=== PATIENT | female | born 1960 | race Caucasian/White ===

== ENCOUNTER 2019-08-02 11:30 | Emergency (ER) | payer MEDICAID ==
[~2019-08-02] VITALS: Ht 154.9 cm; Wt 105.0 kg
[~2019-08-02 11:30] MED LIST: ALBU18HF2 INH; BUSP5TAB3 PO; FLO110IN IH; LISI40TA4 PO; METF500T PO; PRAV40TA3 PO; TAM75C PO
[2019-08-02 11:35] VITALS: BP 164/85
[2019-08-02] MEDS ORDERED: METF-438 PO (12:22)
[2019-08-02] MEDS ORDERED: PIOG30TA10 PO (12:22)
== END 2019-08-02 12:31 | disposition home or self-care (01) ==
LOC: ER 11:30
DX: R05 Cough (principal); R09.81 Nasal congestion; I10 Essential (primary) hypertension; J45.909 Unspecified asthma, uncomplicated; E11.9 Type 2 diabetes mellitus without complications; Z98.890 Other specified postprocedural states; Z60.2 Problems related to living alone; Z79.899 Other long term (current) drug therapy
CPT/HCPCS: 99284

== ENCOUNTER 2019-10-12 10:27 | Emergency (ER) | payer MEDICAID ==
[~2019-10-12] VITALS: Ht 154.9 cm; Wt 105.0 kg
[~2019-10-12 10:27] MED LIST changes: +METF-438 PO; +PIOG30TA10 PO
--- NOTE | 2019-10-12 11:46 | NUR ---
Pt observed ambualting to restroom unassisted, with steady gait. Pt in no obvious distress or pain.
[2019-10-12] MEDS ORDERED: ketorolac trometh. 30mg/ml inj. IM ONE (12:50)
[2019-10-12] MEDS ORDERED: morphine 4 MG/ML inj SYRINge IM ONE (12:50)
[2019-10-12 13:08] VITALS: BP 157/93
== END 2019-10-12 13:05 | disposition home or self-care (01) ==
LOC: ER 10:27
DX: G89.29 Other chronic pain (principal); M54.9 Dorsalgia, unspecified; I10 Essential (primary) hypertension; J44.9 Chronic obstructive pulmonary disease, unspecified; E11.9 Type 2 diabetes mellitus without complications; Z87.01 Personal history of pneumonia (recurrent); Z98.890 Other specified postprocedural states; Z88.8 Allergy status to other drugs, medicaments and biological substances; Z79.899 Other long term (current) drug therapy; W18.30XA Fall on same level, unspecified, initial encounter; Y93.89 Activity, other specified; Y92.028 Other place in mobile home as the place of occurrence of the external cause; Y99.9 Unspecified external cause status
CPT/HCPCS: 96372; 99284; J1885; J2270

== ENCOUNTER 2020-06-20 11:41 | Emergency (ER) | payer MEDICAID ==
[~2020-06-20] VITALS: Ht 154.9 cm; Wt 124.0 kg
[2020-06-20 12:56] VITALS: BP 155/85
== END 2020-06-20 13:42 | disposition home or self-care (01) ==
LOC: ER 11:41
DX: S63.92XA Sprain of unspecified part of left wrist and hand, initial encounter (principal); S60.222A Contusion of left hand, initial encounter; G62.9 Polyneuropathy, unspecified; I10 Essential (primary) hypertension; J44.9 Chronic obstructive pulmonary disease, unspecified; G89.29 Other chronic pain; M54.9 Dorsalgia, unspecified; E11.9 Type 2 diabetes mellitus without complications; Z79.899 Other long term (current) drug therapy; Z88.8 Allergy status to other drugs, medicaments and biological substances; W10.9XXA Fall (on) (from) unspecified stairs and steps, initial encounter; Y93.01 Activity, walking, marching and hiking; Y92.89 Other specified places as the place of occurrence of the external cause; Y99.8 Other external cause status
CPT/HCPCS: 73120; 99283; 99284

== ENCOUNTER 2022-02-10 12:09 | Emergency (ER) | payer MEDICAID ==
[~2022-02-10] VITALS: Ht 152.4 cm; Wt 117.0 kg
[~2022-02-10 12:09] MED LIST changes: +LISI40TA13 PO; -LISI40TA4 PO
[2022-02-10 12:57] LABS: BASOPHILS # (AUTO) 0.1 X10'3 (0-0.2); EOSINOPHILS # (AUTO) 0.2 X10'3 (0-0.9); HEMATOCRIT 36.9 % (35.0-45.0); LYMPHOCYTES # (AUTO) 3.8 X10'3 (1.1-4.8); LYMPHOCYTES % (AUTO) 33.6 % (21-51); MEAN CORPUSCULAR HEMOGLOBIN 28.6 PG (27.0-31.0); MEAN CORPUSCULAR HGB CONC 32.5 g/dL (33.0-36.5); MEAN PLATELET VOLUME 8.9 FL (7.4-10.4); MONOCYTES # (AUTO) 0.9 X10'3 (0-0.9); MONOCYTES % (AUTO) 8.3 % (2-12); NEUTROPHILS # (AUTO) 6.3 X10'3 (1.8-7.7); NEUTROPHILS % (AUTO) 55.1 % (42-75); PLATELET COUNT 319 X10'3 (140-440); RED BLOOD COUNT 4.19 X10'6 (4.20-5.60); RED CELL DISTRIBUTION WIDTH 13.7 % (11.5-14.5); WHITE BLOOD COUNT 11.4 X10'3 (4.5-11.0)
[2022-02-10 13:07] LABS: ALANINE AMINOTRANSFERASE 24 U/L (12-78); ALBUMIN/GLOBULIN RATIO 0.9 (1.1-1.5); ALKALINE PHOSPHATASE 87 IU/L (46-116); ANION GAP 11 (8-16); ASPARTATE AMINO TRANSFERASE 24 U/L (10-37); BILIRUBIN,TOTAL 0.3 MG/DL (0.1-1.0); BLOOD UREA NITROGEN 22 MG/DL (7-18); BUN/CREATININE RATIO 18.2 (6.6-38.0); CALCIUM 9.8 MG/DL (8.5-10.1); CHLORIDE 105 MMOL/L (99-107); CREATININE 1.21 MG/DL (0.40-0.90); GLUCOSE 149 MG/DL (70-104); POTASSIUM 4.3 MMOL/L (3.5-5.1); SODIUM 141 MMOL/L (135-145); TOTAL CARBON DIOXIDE 25.3 MMOL/L (24-32); TOTAL PROTEIN 8.3 G/DL (6.4-8.2); eGFR 45 ML/MIN
[2022-02-10 13:08] LABS: CLARITY,URINE CLEAR (Clear); COLOR,URINE YELLOW (Yellow); GLUCOSE, URINE NEGATIVE (Neg); KETONES,URINE NEGATIVE (Neg); LEUKOCYTE ESTERASE ,URINE NEGATIVE (Neg); NITRITES, URINE NEGATIVE (Neg); OCCULT BLOOD,URINE NEGATIVE (Neg); PH,URINE 5.5 (4.8-8.0); PROTEIN,URINE NEGATIVE (Neg); UROBILINOGEN,URINE 0.2 E.U/dL (0.2-1.0)
[2022-02-10 13:13] LABS: UA COLLECTION TYPE NON-SPECIFIED
[2022-02-10 16:47] VITALS: BP 129/80
== END 2022-02-10 16:45 | disposition home or self-care (01) ==
LOC: ER 12:10
DX: R10.31 Right lower quadrant pain (principal); R19.7 Diarrhea, unspecified; D25.9 Leiomyoma of uterus, unspecified; R11.0 Nausea; I10 Essential (primary) hypertension; J44.9 Chronic obstructive pulmonary disease, unspecified; E11.9 Type 2 diabetes mellitus without complications; G89.29 Other chronic pain; M54.9 Dorsalgia, unspecified
CPT/HCPCS: 36415; 74176; 80053; 81003; 85025; 99284

== ENCOUNTER 2022-07-27 08:59 | Day surgery (SDC) | payer MEDICARE, MEDICAID ==
[2022-07-26 12:55] LABS: BASOPHILS # (AUTO) 0.1 X10'3 (0-0.2); EOSINOPHILS # (AUTO) 0.2 X10'3 (0-0.9); EOSINOPHILS % (AUTO) 2.7 % (0-6); HEMATOCRIT 36.5 % (35.0-45.0); LYMPHOCYTES # (AUTO) 2.8 X10'3 (1.1-4.8); LYMPHOCYTES % (AUTO) 34.7 % (21-51); MEAN CORPUSCULAR HGB CONC 32.9 g/dL (33.0-36.5); MEAN CORPUSCULAR VOLUME 88.1 FL (78-98); MEAN PLATELET VOLUME 8.7 FL (7.4-10.4); MONOCYTES # (AUTO) 0.6 X10'3 (0-0.9); MONOCYTES % (AUTO) 7.2 % (2-12); NEUTROPHILS # (AUTO) 4.4 X10'3 (1.8-7.7); NEUTROPHILS % (AUTO) 54.4 % (42-75); PLATELET COUNT 293 X10'3 (140-440); RED BLOOD COUNT 4.14 X10'6 (4.20-5.60); RED CELL DISTRIBUTION WIDTH 13.9 % (11.5-14.5); WHITE BLOOD COUNT 8.1 X10'3 (4.5-11.0)
[2022-07-26 13:17] LABS: ALBUMIN 3.8 G/DL (3.4-5.0); ANION GAP 12 (8-16); BLOOD UREA NITROGEN 16 MG/DL (7-18); BUN/CREATININE RATIO 12.1 (6.6-38.0); CALCIUM 9.6 MG/DL (8.5-10.1); CHLORIDE 103 MMOL/L (99-107); CREATININE 1.32 MG/DL (0.40-0.90); GLUCOSE 231 MG/DL (70-104); POTASSIUM 3.9 MMOL/L (3.5-5.1); SODIUM 139 MMOL/L (135-145); TOTAL CARBON DIOXIDE 23.7 MMOL/L (24-32); eGFR 41 ML/MIN
[2022-07-26 13:21] LABS: APTT 28 SECONDS (22-32)
[~2022-07-27] VITALS: Ht 152.4 cm; Wt 109.7 kg
[2022-07-27] VITALS (9 sets, daily range): BP systolic 130–161; BP diastolic 69–99
[~2022-07-27 08:59] MED LIST changes: -METF-438 PO; -TAM75C PO
[2022-07-27] MEDS ORDERED: acetylcysteine 200 MG/ml 4ml vial PO PRN ×2 (09:43→10:35)
[2022-07-27] MEDS ORDERED: LORazepam 0.5 MG tablet PO PRN (09:45)
[2022-07-27] MEDS ORDERED: sodium bicarbonate (8.4%) inj. 150 ML in dextrose 5%-water 850 ML IV ONE (09:45)
[2022-07-27] MEDS ORDERED: sodium bicarbonate (8.4%) inj. 150 ML in dextrose 5%-water 1,000 ML IV ONE (09:45)
[2022-07-27] MEDS ORDERED: diphenhydrAMINE 25mg capsule PO PRN (09:45)
[2022-07-27] MEDS ORDERED: CARV3.123 PO (09:51)
[2022-07-27] MEDS ORDERED: HYDR-3972 PO (09:51)
[2022-07-27] MEDS ORDERED: FAMO20TA8 PO (09:54)
[2022-07-27] MEDS ORDERED: ASPI-1265 PO (09:54)
[2022-07-27] MEDS ORDERED: DULO30CA52 PO (09:54)
[2022-07-27] MEDS ORDERED: CETI10TA14 PO (09:54)
[2022-07-27] MEDS ORDERED: midazolam 1 mg/ML 2ml injection ONE (12:15)
[2022-07-27] MEDS ORDERED: heparin 1,000unit/ml 10ml vial 10 ML ONE (12:15)
[2022-07-27] MEDS ORDERED: nitroGLYCERIN-Tridil 50MG/D5W 250 ML IV ONE (12:15)
[2022-07-27] MEDS ORDERED: verapamil 2.5 mg/ml inj IV ONE (12:15)
[2022-07-27] MEDS ORDERED: fentaNYL/PF 50MCG/1 ML 2ML syringe ONE (12:15)
[2022-07-27] MEDS ORDERED: iohexol 350MG/ML 100ml bottle IV ONE ×2 (12:15→13:34)
[2022-07-27] MEDS ORDERED: LIDOcaine 1% (10mg/ml) 2ml vial ONE (12:15)
[2022-07-27] MEDS ORDERED: LIDOcaine 1% 30ml preserv. free vial ONE (12:41)
[2022-07-27] MEDS ORDERED: normal saline 1000ml 1,000 ML IV SCH (14:25)
[2022-07-27 14:27] LABS: ISTAT HGB ART 11.6 g/dl (12.0-16.0); ISTAT Hct ART 34 %PCV (35-45); ISTAT O2 SATURATION ARTERIAL 94 % (95-98); ISTAT SOURCE BLNK
[2022-07-27 14:27] LABS: ISTAT Hct MIX 33 %PCV (35-45); ISTAT O2 SATURATION MIX VENOUS 64 % (60-80); ISTAT SOURCE BLNK
== END 2022-07-27 18:06 | disposition home or self-care (01) ==
LOC: SSTAY O 08:59
PROVIDERS: ATTEND Internal Medicine Cardiovascular Disease
DX: R94.39 Abnormal result of other cardiovascular function study (principal); I25.10 Atherosclerotic heart disease of native coronary artery without angina pectoris; E11.9 Type 2 diabetes mellitus without complications; I10 Essential (primary) hypertension; F32.9 Major depressive disorder, single episode, unspecified; F41.9 Anxiety disorder, unspecified; F32.A Depression, unspecified; J44.9 Chronic obstructive pulmonary disease, unspecified; I42.9 Cardiomyopathy, unspecified; I43 Cardiomyopathy in diseases classified elsewhere; E78.5 Hyperlipidemia, unspecified; G89.29 Other chronic pain; Z80.9 Family history of malignant neoplasm, unspecified; Z96.653 Presence of artificial knee joint, bilateral; Z87.891 Personal history of nicotine dependence; Z98.890 Other specified postprocedural states; Z88.8 Allergy status to other drugs, medicaments and biological substances; Z79.82 Long term (current) use of aspirin; Z79.84 Long term (current) use of oral hypoglycemic drugs; Z79.899 Other long term (current) drug therapy; Z79.01 Long term (current) use of anticoagulants; Z80.8 Family history of malignant neoplasm of other organs or systems
CPT/HCPCS: 36415; 80048; 82803; 82948; 85014; 85025; 85610; 85730; 93005; 93460; 99152; 99153; C1751; C1769; C1894; J1644; J2250; J3010; J3490; J7030; J7070; Q0163; Q9967; A6258; A6402